=== PATIENT | male | born 1960 | race Caucasian/White ===

== ENCOUNTER 2021-05-04 16:47 | Inpatient (IN) | payer MEDICARE ==
[~2021-05-04] VITALS: Ht 182.9 cm; Wt 81.6 kg
[2021-05-04 17:39] LABS: HEMOGLOBIN 15.1 gm/dl (14.0-17.5); RED BLOOD COUNT 5.12 M/UL (4.20-5.50); WHITE BLOOD COUNT 5.2 K/UL (4.5-11.0)
[2021-05-04 17:59] LABS: BUN/CREATININE RATIO 21 (0-10)
[2021-05-04] MEDS ORDERED: AMLODIPINE BESY10 MG PO (23:04)
[2021-05-04] MEDS ORDERED: ATORVASTATIN CA40 MG PO (23:05)
[2021-05-04] MEDS ORDERED: GLIPIZIDE10 MG PO (23:06)
[2021-05-04] MEDS ORDERED: JARDIANCE10 MG PO (23:06)
[2021-05-04] MEDS ORDERED: LOSARTAN POTAS100 MG PO (23:06)
[2021-05-04] MEDS ORDERED: METFORMIN HCL1000 MG PO (23:07)
[2021-05-04] MEDS ORDERED: METOPROLOL SUCC50 MG PO (23:07)
[2021-05-04] MEDS ORDERED: OMEPRAZOLE20 MG PO (23:07)
[2021-05-05 06:32] LABS: HEMOGLOBIN 13.7 gm/dl (14.0-17.5)
[2021-05-05 06:46] LABS: RED BLOOD COUNT 4.54 M/UL (4.20-5.50); WHITE BLOOD COUNT 2.6 K/UL (4.5-11.0)
[2021-05-05 07:01] LABS: BUN/CREATININE RATIO 26 (0-10)
--- NOTE | 2021-05-06 00:53 | NUR ---
PATIENT IS NON COMPLIANT WITH TELE HIS CHEST HAIR WILL NOT ALLOW ELECTRODES TO STICK AND HE REFUSES TO SHAVE AREA.
[2021-05-06 04:58] LABS: HEMOGLOBIN 13.8 gm/dl (14.0-17.5); RED BLOOD COUNT 4.57 M/UL (4.20-5.50)
[2021-05-06 05:23] LABS: BUN/CREATININE RATIO 28 (0-10)
--- NOTE | 2021-05-06 16:42 | NUR ---
PATIENT SIGNED OUT AMA AT 1200 DR MUÑOZ MADE AWARE I DESCRIBED IN GREAT DETAIL WITH PATIENT THE NEED FOR HIM TO STAY PT HAD BEEN SATTING 94% ON RA FOR AN HOUR BEFORE HE LFT BEFORE WAS ON 3 L NC I EXPLAINED TO THE PT HIS ABG WAS LOW IN ER AND THAT HE NEEDED ABX AND O2 PATIENT STATED HE WOULD GO TO [facility] PROVIDER AND INSISTED HE LEAVE AND THAT HE UNDERSTOOD THE RISKS PATIENT ALERT AND ORIENTED TO PERSON, PLACE, TIME AND SITUATION WHEN SIGNING AMA PAPERS
== END 2021-05-06 12:51 | disposition left against medical advice (07) | DRG 177 ==
LOC: ER1 16:47 → M/S 18:49 → CDU 18:49 → M/S 21:29
PROVIDERS: Internal Medicine; Physician Assistant; ADMIT Internal Medicine
PROC: 3E0333Z Introduction of Anti-inflammatory into Peripheral Vein, Percutaneous Approach (ICD-10-PCS; principal; 2021-05-04)
DX: U07.1 COVID-19 (principal); J96.01 Acute respiratory failure with hypoxia; J12.82 Pneumonia due to coronavirus disease 2019; E87.1 Hypo-osmolality and hyponatremia; R74.01 Elevation of levels of liver transaminase levels; E80.6 Other disorders of bilirubin metabolism; E86.1 Hypovolemia; I45.81 Long QT syndrome; I25.10 Atherosclerotic heart disease of native coronary artery without angina pectoris; E11.9 Type 2 diabetes mellitus without complications; K21.9 Gastro-esophageal reflux disease without esophagitis; Z95.1 Presence of aortocoronary bypass graft; Z90.49 Acquired absence of other specified parts of digestive tract; Z79.01 Long term (current) use of anticoagulants; Z79.82 Long term (current) use of aspirin; Z82.5 Family history of asthma and other chronic lower respiratory diseases
CPT/HCPCS: 36415; 36600; 71045; 80053; 82550; 82553; 82803; 82962; 83036; 83605; 83735; 83874; 84484; 85025; 85027; 85379; 87040; 93005; 94640; 94664; 94760; 96374; 96375; 99285; J0696; J1100; J1650; J1885; J2405; J7030

== ENCOUNTER 2021-05-06 14:45 | Inpatient (IN) | payer MEDICARE ==
[~2021-05-06] VITALS: Ht 182.9 cm; Wt 80.3 kg
[~2021-05-06 14:45] MED LIST: AMLODIPINE BESY10 MG PO; ATORVASTATIN CA40 MG PO; GLIPIZIDE10 MG PO; JARDIANCE10 MG PO; LOSARTAN POTAS100 MG PO; METFORMIN HCL1000 MG PO; METOPROLOL SUCC50 MG PO; OMEPRAZOLE20 MG PO
[2021-05-06 16:01] LABS: HEMOGLOBIN 13.9 gm/dl (14.0-17.5); RED BLOOD COUNT 4.5 M/UL (4.20-5.50)
[2021-05-06 16:10] LABS: WHITE BLOOD COUNT 12.8 K/UL (4.5-11.0)
[2021-05-06 16:25] LABS: BUN/CREATININE RATIO 29 (0-10)
[2021-05-07 06:57] LABS: HEMOGLOBIN 14.2 gm/dl (14.0-17.5); RED BLOOD COUNT 4.73 M/UL (4.20-5.50)
[2021-05-07 07:39] LABS: BUN/CREATININE RATIO 29 (0-10)
--- NOTE | 2021-05-07 19:19 | NUR ---
PT HAS BEEN CONFUSED ALL DAY, DR MCCLELLAN HAS VISITED 2 X TO HELP WITH CARE TODAY. HE HAS LEFT HIS ISOLATION ROOM WITH HIS IN THE ROOM WITH HIM. 1 TO 1 CARE ORDERED AFTER MEDICATION PT BECAME MORE AGITIATED AND COMBATIVE KICKING AND HIS WAS KICKED BY THE PATIENT. HE CURRENTLY HAS A MALE SITTER WHO HE RESPONDS BETTER TO. HAS ASKED MULTIPLE TIMES ABOUT DECREASING OXYGEN, WALKING HIM AND DISCONNECTING HIS IV DR MCCLELLAN IS AWARE OF ALL REQUEST IT IS SAFER AT THIS TIME FOR PATIENT TO BE BEDREST.
[2021-05-08 10:41] LABS: HEMOGLOBIN 13.9 gm/dl (14.0-17.5); RED BLOOD COUNT 4.6 M/UL (4.20-5.50)
[2021-05-08 10:42] LABS: WHITE BLOOD COUNT 8.2 K/UL (4.5-11.0)
[2021-05-08 11:18] LABS: BUN/CREATININE RATIO 30 (0-10)
[2021-05-09 08:42] LABS: HEMOGLOBIN 15.1 gm/dl (14.0-17.5); RED BLOOD COUNT 4.87 M/UL (4.20-5.50); WHITE BLOOD COUNT 10.4 K/UL (4.5-11.0)
[2021-05-09 09:00] LABS: BUN/CREATININE RATIO 19 (0-10)
[2021-05-10 06:55] LABS: RED BLOOD COUNT 4.61 M/UL (4.20-5.50)
[2021-05-10 07:03] LABS: WHITE BLOOD COUNT 5.7 K/UL (4.5-11.0)
[2021-05-10 07:16] LABS: BUN/CREATININE RATIO 18 (0-10)
[2021-05-11 08:11] LABS: HEMOGLOBIN 13.9 gm/dl (14.0-17.5); RED BLOOD COUNT 4.67 M/UL (4.20-5.50); WHITE BLOOD COUNT 6.5 K/UL (4.5-11.0)
[2021-05-11 08:31] LABS: BUN/CREATININE RATIO 22 (0-10)
[2021-05-12 12:34] LABS: HEMOGLOBIN 14.4 gm/dl (14.0-17.5); RED BLOOD COUNT 4.8 M/UL (4.20-5.50); WHITE BLOOD COUNT 7.6 K/UL (4.5-11.0)
[2021-05-12 13:04] LABS: BUN/CREATININE RATIO 20 (0-10)
[2021-05-12] MEDS ORDERED: BUDESONIDE0.5 MG/2 M NEB (13:11)
[2021-05-12] MEDS ORDERED: CEFUROXIME500 MG PO (13:11)
[2021-05-12] MEDS ORDERED: IPRAT-ALBUT 0.5-3 ML NEB (13:11)
[2021-05-12] MEDS ORDERED: DECADRON IM/I4 MG/ML PO (13:11)
[2021-05-12] MEDS ORDERED: DECADRON6 MG PO (13:20)
== END 2021-05-12 16:06 | disposition home or self-care (01) | DRG 177 ==
LOC: ER1 14:45 → CDU 21:27 → MED SURG 4 21:27
PROVIDERS: Internal Medicine; Physician Assistant; Physician Assistant Medical; ADMIT Internal Medicine
PROC: 8E0ZXY6 Isolation (ICD-10-PCS; principal; 2021-05-06)
PROC: 3E0333Z Introduction of Anti-inflammatory into Peripheral Vein, Percutaneous Approach (ICD-10-PCS; 2021-05-06)
DX: U07.1 COVID-19 (principal); J12.82 Pneumonia due to coronavirus disease 2019; G93.41 Metabolic encephalopathy; J96.21 Acute and chronic respiratory failure with hypoxia; G93.1 Anoxic brain damage, not elsewhere classified; I25.10 Atherosclerotic heart disease of native coronary artery without angina pectoris; E11.9 Type 2 diabetes mellitus without complications; G47.00 Insomnia, unspecified; I11.0 Hypertensive heart disease with heart failure; I50.9 Heart failure, unspecified; K21.9 Gastro-esophageal reflux disease without esophagitis; R74.01 Elevation of levels of liver transaminase levels; E86.0 Dehydration; Z90.49 Acquired absence of other specified parts of digestive tract; Z98.890 Other specified postprocedural states; Z82.49 Family history of ischemic heart disease and other diseases of the circulatory system; Z95.1 Presence of aortocoronary bypass graft; Z79.899 Other long term (current) drug therapy; Z91.14 Patient's other noncompliance with medication regimen; Z99.81 Dependence on supplemental oxygen
CPT/HCPCS: 36415; 36600; 70450; 71045; 80048; 80053; 80076; 80307; 81001; 82803; 82962; 83605; 85025; 85027; 86140; 92610; 93005; 94003; 94640; 94760; 96374; 97110-GP-CQ; 97116-GP-CQ; 97162; 99285; C9113; G0480; J0456; J0696; J1100; J1630; J1650; J2060; J3486; J7030